=== PATIENT | male | born 1950 | race Caucasian/White ===

== ENCOUNTER 2020-03-13 02:40 | Outpatient (CLI) | payer MEDICARE, BC, SELFPAY ==
[2020-03-13 09:13] LABS: ALT 20 U/L (16-63); AST 14 U/L (15-37); Albumin 4.3 g/dL (3.4-5.0); Alkaline Phosphatase 111 U/L (46-116); Bilirubin, Total 0.7 mg/dL (0.2-1.0); Calculated LDL 90 mg/dL (<100); Cholesterol 143 mg/dL (<200); HDL Cholesterol 38 mg/dL (40-60); Total Protein 7.6 g/dL (6.4-8.2); Triglyceride 77 mg/dL (<150)
[2020-03-13 09:21] LABS: Bilirubin, Direct 0.16 mg/dL (0.00-0.20)
== END 2020-03-13 03:00 ==
PROVIDERS: PCP Emergency Medicine; Visit Provider Emergency Medicine
DX: H35.0 Background retinopathy and retinal vascular changes (principal); B17.10 Acute hepatitis C without hepatic coma
CPT/HCPCS: 36415; 80061; 80076

== ENCOUNTER 2020-12-11 18:15 | Outpatient (REF) | payer MEDICARE, BC, SELFPAY ==
[2020-12-11 21:12] LABS: BUN 14 mg/dL (7-18); CREATININE 0.8 mg/dL (0.70-1.30); Calcium 9.1 mg/dL (8.5-10.1); Chloride 105 mmol/L (98-107); Glucose 90 mg/dL (74-106); Sodium 142 mmol/L (136-145); Uric Acid 6.1 mg/dL (3.5-7.2)
[2020-12-12 17:26] LABS: PSA, Diagnostic 0.6 ng/mL (0.0-6.5)
== END 2020-12-11 18:16 | disposition home or self-care (01) ==
LOC: LBN 18:15
PROVIDERS: PCP Emergency Medicine; Visit Provider Emergency Medicine
DX: I10 Essential (primary) hypertension (principal); M10.9 Gout, unspecified; N40.0 Benign prostatic hyperplasia without lower urinary tract symptoms
CPT/HCPCS: 80048; 84153; 84550

== ENCOUNTER 2022-01-10 01:47 | Outpatient (CLI) | payer MEDICARE, BC, SELFPAY ==
[2022-01-10 08:14] LABS: ALT 20 U/L (16-63); AST 14 U/L (15-37); Alkaline Phosphatase 115 U/L (46-116); Anion Gap 7.2 mmol/L (3-11); BUN 12 mg/dL (7-18); Bilirubin, Total 0.5 mg/dL (0.2-1.0); CO2 31.8 mmol/L (21.0-32.0); CREATININE 0.9 mg/dL (0.70-1.30); Calcium 8.6 mg/dL (8.5-10.1); Calculated LDL 99 mg/dL (<100); Chloride 102 mmol/L (98-107); Cholesterol 167 mg/dL (<200); Glucose 109 mg/dL (74-106); HDL Cholesterol 43 mg/dL (40-60); Potassium 3.6 mmol/L (3.5-5.1); Sodium 141 mmol/L (136-145); Total Protein 7.9 g/dL (6.4-8.2); Triglyceride 125 mg/dL (<150)
== END 2022-01-10 01:48 | disposition home or self-care (01) ==
LOC: LBO 01:47
PROVIDERS: PCP Nurse Practitioner Family; Visit Provider Family Medicine
DX: I10 Essential (primary) hypertension (principal)
CPT/HCPCS: 36415; 80053; 80061

== ENCOUNTER 2022-02-25 03:55 | Outpatient (CLI) | payer MEDICARE, BC, SELFPAY ==
[2022-02-26 10:52] LABS: Lyme Ab w Rflx to Lyme Confirm Negative (Negative)
[2022-03-03 19:05] LABS: Anaplasma phagocytophilum Negative (Negative); B. miyamotoi PCR Negative (Negative); Babesia divergens/MO-1 Negative (Negative); Babesia duncani Negative (Negative); Babesia microti Negative (Negative); Ehrlichia chaffeensis Negative (Negative); Ehrlichia ewingii/canis Negative (Negative); Ehrlichia muris eauclairensis Negative (Negative)
== END 2022-02-25 03:56 | disposition home or self-care (01) ==
PROVIDERS: PCP Nurse Practitioner Family; Visit Provider Physician Assistant
DX: L29.8 Other pruritus; W57.XXXA Bitten or stung by nonvenomous insect and other nonvenomous arthropods, initial encounter; T14.8XXA Other injury of unspecified body region, initial encounter
CPT/HCPCS: 36415; 87798; 86618

== ENCOUNTER 2022-10-16 08:14 | Outpatient (CLI) | payer MEDICARE, BC, SELFPAY | END 2022-10-16 08:15 | disposition home or self-care (01) | PROVIDERS: PCP Nurse Practitioner Family; Visit Provider Nurse Practitioner Family | DX: R00.2 Palpitations (principal) | CPT/HCPCS: 93246 ==

== ENCOUNTER 2022-11-10 09:42 | Outpatient (CLI) | payer MEDICARE, BC, SELFPAY ==
--- NOTE | 2022-11-10 11:40 | W.CARDEVENT ---
Date of service: 11/10/22 Time of Service: 11:40 Cardiac Event Recorder Referring Provider:: Roldan Ulloa Indications:: Palpitations Cardiac Event Note: This is a 14-day event monitor ordered for palpitations. Rhythm throughout was sinus with an average heart rate of 71. Minimum was 50, maximum 113 There were rare atrial and ventricular ectopic beats There was no atrial fibrillation. Episodes labeled atrial fibrillation by the computer were in fact sinus rhythm with atrial premature beats There were several self-limited atrial runs. Longest of these was 26 beats in duration, otherwise all were less than 6 beats in length. Symptoms were reported. Some of these had no correlation to dysrhythmia, others to atrial premature beats
== END 2022-11-10 09:43 | disposition home or self-care (01) ==
PROVIDERS: PCP Nurse Practitioner Family; Visit Provider Internal Medicine Cardiovascular Disease
DX: R00.2 Palpitations (principal); I49.1 Atrial premature depolarization
CPT/HCPCS: 93248

== ENCOUNTER 2023-07-03 01:42 | Outpatient (CLI) | payer MEDICARE, BC, SELFPAY ==
[2023-07-03 15:58] LABS: Estimated GFR 79.97 (mL/min/1.73m2); Potassium 3.4 mmol/L (3.5-5.1)
[2023-07-03 17:56] LABS: Hemoglobin A1C 5.6 % (<5.7)
== END 2023-07-03 01:43 | disposition home or self-care (01) ==
LOC: LBO 01:43
PROVIDERS: PCP Nurse Practitioner Family; Visit Provider Nurse Practitioner Family
DX: R73.01 Impaired fasting glucose (principal); I10 Essential (primary) hypertension
CPT/HCPCS: 36415; 82565; 83036; 84132

== ENCOUNTER 2024-01-21 01:06 | Outpatient (CLI) | payer MEDICARE, BC, SELFPAY ==
[2024-01-21 15:38] LABS: HCT 49.1 % (40.0-50.0); HGB 17.2 g/dL (13.5-17.5); MCH 30.8 pg (27.0-33.0); MCV 88 fL (80-95); MPV 10.2 fL (8.0-11.0); Platelet Count 246 10^3/uL (130-400); RBC 5.58 10^6/uL (4.36-5.78); RDW 12.2 % (11.8-14.1); RDW-SD 40.1 fL; WBC 8.04 10^3/uL (4.4-10.8)
[2024-01-21 16:09] LABS: ALT 22 U/L (16-63); AST 18 U/L (15-37); Albumin 4.1 g/dL (3.4-5.0); Alkaline Phosphatase 105 U/L (46-116); Anion Gap 8.9 mmol/L (3-11); BUN 13 mg/dL (7-18); Bilirubin, Total 0.77 mg/dL (0.2-1.0); CO2 29.1 mmol/L (21.0-32.0); Calcium 9.2 mg/dL (8.5-10.1); Chloride 103 mmol/L (98-107); Estimated GFR 79.47 (mL/min/1.73m2); Glucose 94 mg/dL (74-106); Potassium 3.5 mmol/L (3.5-5.1); Sodium 141 mmol/L (136-145); Total Protein 7.9 g/dL (6.4-8.2)
== END 2024-01-21 01:07 | disposition home or self-care (01) ==
PROVIDERS: PCP Nurse Practitioner Family; Visit Provider Nurse Practitioner Family
DX: R55 Syncope and collapse (principal)
CPT/HCPCS: 36415; 80053; 85027

== ENCOUNTER 2024-07-12 02:02 | Outpatient (CLI) | payer MEDICARE, BC, SELFPAY ==
[2024-07-12 14:34] LABS: Anion Gap 6.4 mmol/L (3-11); BUN 10 mg/dL (7-18); CO2 30.6 mmol/L (21.0-32.0); CREATININE 1.1 mg/dL (0.70-1.30); Calcium 9.6 mg/dL (8.5-10.1); Calculated LDL 98 mg/dL (<100); Chloride 104 mmol/L (98-107); Cholesterol 164 mg/dL (<200); Estimated GFR 70.88 (mL/min/1.73m2); Glucose 106 mg/dL (74-106); HDL Cholesterol 48 mg/dL (40-60); Potassium 4.4 mmol/L (3.5-5.1); Sodium 141 mmol/L (136-145); Triglyceride 94 mg/dL (<150)
[2024-07-12 23:22] LABS: PSA, Screening 0.7 ng/mL (<=6.5)
== END 2024-07-12 02:03 | disposition home or self-care (01) ==
PROVIDERS: PCP Nurse Practitioner Family; Visit Provider Nurse Practitioner Family
DX: Z13.6 Encounter for screening for cardiovascular disorders (principal); Z12.5 Encounter for screening for malignant neoplasm of prostate; Z13.1 Encounter for screening for diabetes mellitus
CPT/HCPCS: 36415; 80048; 80061; 84153

== ENCOUNTER 2024-08-02 01:11 | Outpatient (CLI) | payer MEDICARE, BC, SELFPAY ==
--- NOTE | 2024-08-02 07:00 | DI.US_ITS ---
Exam(s) US LOWER EXTREMITY VENOUS LT EXAM: US LOWER EXTREMITY VENOUS LT CLINICAL HISTORY: LT leg swelling.? DVT,M79.89 TECHNIQUE: Grayscale, color, and doppler imaging of the deep venous system of the left lower extremi ty was performed. COMPARISON: No exams were available for comparison FINDINGS: There is no evidence of intraluminal thrombus and there is normal compression and augmentation demons trated within the common femoral vein, femoral vein, and popliteal vein. In the ipsilateral calf the interrogated veins also exhibit normal compression/ augmentation properti es. The ipsilateral saphenofemoral junction is patent. There is a fluid collection in the popliteal fossa measuring 2.1 x 1.1 x 2.3 cm, consistent with Bake r's cyst. IMPRESSION: 1. No evidence of DVT in the left lower extremity. 2. Donald cyst in the popliteal fossa noted measurements as above DATA REPOSITORY:
--- NOTE | 2024-08-02 09:23 | DI.RAD_ITS ---
Exam(s) XR KNEE LT 3V AP,LAT,KENNY EXAM: XR KNEE LT 3V AP,LAT,KENNY CLINICAL HISTORY: pain, swelling,M25.469. TECHNIQUE: 2D digital imaging was performed. COMPARISON: No exams were available for comparison FINDINGS: 3 views No evidence of acute fracture although a joint effusion is noted. There is chondrocalcinosis in both medial lateral compartments. Mild degenerative changes. No osseo us lesions. Bone density normal. In these 0 fight noted at the quadriceps insertion on the anterosu perior patella. IMPRESSION: No acute fractures. Joint effusion noted may signify internal derangement. Chondrocalcinosis is noted in both medial lateral compartments. DATA REPOSITORY: RADIATION DOSE DELIVERED:
== END 2024-08-02 01:31 ==
LOC: DI 01:12
PROVIDERS: PCP Nurse Practitioner Family; Visit Provider Physician Assistant
DX: M79.89 Other specified soft tissue disorders (principal)
CPT/HCPCS: 73562; 93971

== ENCOUNTER → 2024-08-17 11:11 | Outpatient (BNVA) | payer MEDICARE, BC, SELFPAY | PROVIDERS: PCP Nurse Practitioner Family; Referring Provider Nurse Practitioner Family; Visit Provider Podiatrist | DX: M79.671 Pain in right foot (principal); M25.571 Pain in right ankle and joints of right foot; E79.0 Hyperuricemia without signs of inflammatory arthritis and tophaceous disease; L03.031 Cellulitis of right toe | CPT/HCPCS: 99214 ==

== ENCOUNTER 2024-08-17 12:43 | Outpatient (CLI) | payer MEDICARE, BC, SELFPAY ==
--- NOTE | 2024-08-17 12:01 | DI.RAD_ITS ---
Exam(s) XR FOOT RT COMPLETE EXAM: XR FOOT RT COMPLETE CLINICAL HISTORY: hallux IPJ pain M79.671 Pain rt foot. TECHNIQUE: 2D digital imaging was performed. Three views. COMPARISON: CR LEFT FOOT COMPLETE from 04/06/2013 FINDINGS: BONES: No acute fracture is present. No bony destructive lesion is seen. JOINTS: No dislocation present. Mild hallux valgus. Mild degenerative changes at the 1st MTP joint. SOFT TISSUE: Vascular calcifications. IMPRESSION: Mild degenerative changes of the 1st MTP joint. Mild valgus. DATA REPOSITORY: RADIATION DOSE DELIVERED:
== END 2024-08-17 13:03 ==
LOC: DI 12:44
PROVIDERS: PCP Nurse Practitioner Family; Visit Provider Podiatrist
DX: M79.671 Pain in right foot (principal)
CPT/HCPCS: 73630

== ENCOUNTER 2024-08-17 12:44 | Outpatient (CLI) | payer MEDICARE, BC, SELFPAY ==
[2024-08-17 12:23] LABS: Abs Immature Grans 0.05 10^3/uL (0.0-0.06); Absolute Basophil Count 0.05 10^3/uL (0.0-0.2); Absolute Eosinophil Count 0.17 10^3/uL (0.0-0.7); Absolute Lymphocyte Count 2.09 10^3/uL (1.2-3.4); Absolute Monocyte Count 0.71 10^3/uL (0.1-0.8); Absolute Neutrophil Count 5.93 10^3/uL (1.2-6.7); Basophils % 0.6 %; Eosinophils % 1.9 %; HCT 49.4 % (40.0-50.0); HGB 16.7 g/dL (13.5-17.5); Immature Grans % 0.6 %; Lymphocytes % 23.2 %; MCHC 33.8 % (32.0-36.0); MCV 89 fL (80-95); MPV 9.8 fL (8.0-11.0); Monocytes % 7.9 %; Neutrophils % 65.8 %; Platelet Count 291 10^3/uL (130-400); RBC 5.56 10^6/uL (4.36-5.78); RDW 12.5 % (11.8-14.1); RDW-SD 41.1 fL
[2024-08-17 12:39] LABS: Uric Acid 6.5 mg/dL (3.5-7.2)
== END 2024-08-17 12:45 | disposition home or self-care (01) ==
LOC: LBO 12:45
PROVIDERS: PCP Nurse Practitioner Family; Visit Provider Podiatrist
DX: E79.0 Hyperuricemia without signs of inflammatory arthritis and tophaceous disease (principal); L03.90 Cellulitis, unspecified
CPT/HCPCS: 36415; 99214; 73630; 84550; 85025

== ENCOUNTER → 2024-08-19 07:52 | Outpatient (BNVA) | payer MEDICARE, BC, SELFPAY | PROVIDERS: PCP Nurse Practitioner Family; Referring Provider Nurse Practitioner Family | DX: M23.92 Unspecified internal derangement of left knee (principal) | CPT/HCPCS: 99203 ==

== ENCOUNTER → 2024-09-01 11:16 | Outpatient (BNVA) | payer MEDICARE, BC, SELFPAY | PROVIDERS: PCP Nurse Practitioner Family; Referring Provider Nurse Practitioner Family; Visit Provider Podiatrist | DX: M25.571 Pain in right ankle and joints of right foot; Z87.39 Personal history of other diseases of the musculoskeletal system and connective tissue | CPT/HCPCS: 99213 ==

== ENCOUNTER 2024-09-09 16:18 | Outpatient (CLI) | payer MEDICARE, BC, SELFPAY ==
--- NOTE | 2024-09-09 14:02 | DI.RAD_ITS ---
Exam(s) XR CHEST 2V PA LATERAL EXAM: XR CHEST 2V PA LATERAL CLINICAL HISTORY: CHRONIC COUGH, R05.9 TECHNIQUE: 2D digital imaging was performed. Two views. COMPARISON: No exams were available for comparison FINDINGS: HEART: Normal size. Aorta: Not dilated. PULMONARY VASCULATURE: Normal. MEDIASTINUM: Unremarkable. LUNGS: Clear. PLEURAL SPACE: No pleural effusion or pneumothorax. BONE:Unremarkable for age. SOFT TISSUES: Unremarkable. IMPRESSION: No acute abnormality. DATA REPOSITORY: RADIATION DOSE DELIVERED:
== END 2024-09-09 16:38 ==
LOC: DI 16:18
PROVIDERS: PCP Internal Medicine; Visit Provider Internal Medicine
DX: R05.9 Cough, unspecified (principal)
CPT/HCPCS: 71046

== ENCOUNTER 2024-09-12 01:26 | Outpatient (CLI) | payer MEDICARE, BC, SELFPAY ==
--- NOTE | 2024-09-12 06:30 | DI.MRI_ITS ---
Exam(s) MR LOWER JOINT LT WO EXAM: MR LOWER JOINT LT WO CLINICAL HISTORY: PAIN,internal derangement lt knee,m23.92 TECHNIQUE: Multiplanar multisequence MRI of the knee was performed. COMPARISON: CR XR KNEE LT 3V AP,LAT,KENNY from 08/02/2024 FINDINGS: EFFUSION: There is a prominent joint effusion and synovial thickening. There is also a Donald cyst in the popliteal fossa which measures 5 cm craniocaudal length by 1 cm AP by 1.2 cm wide. This may be ruptured as there is some fluid signal over the subjacent descending medial gastrocnemius muscle. Th ere is subcutaneous edema around the anterior aspect and knee. There is also a thin fluid collection anterior to the patella and patellar ligament, consistent with prepatellar bursitis. MARROW:There is an area of subarticular edema in the posterior aspect of the medial tibial plateau. There are no significant osseous lesions. PATELLOFEMORAL COMPARTMENT: Quadriceps tendon is intact. There is some signal abnormality in the inf erior patellar tendon but no high-grade tear is. There is no significant thinning of the retropatellar cartilage. No evidence of fissure nor signific ant chondral defect. No osteochondral defect at this level.There is no intraosseous signal to sugges t recent patellar dislocation. There are no patellar retinacular tears. CRUCIATE LIGAMENTS: There is signal abnormality throughout the mid-lower aspect of the anterior cruci ate ligament, consistent with probable partial tearing or significant degenerative changes in the str ucture. There is mild increased signal seen in the upper half of the posterior cruciate ligament but without a high-grade tear of the PCL. MEDIAL COMPARTMENT/MEDIAL MENISCUS: There is an oblique radial tear involving both the posterior and anterior horns of the medial meniscus. There also appears to be extension of the tear in oblique hor izontal fashion towards the meniscal root. There are no flipped meniscal fragments. There is some mild articular cartilage loss in the medial compartment. There is mild subarticular bill ne edema in the posterior aspect of the medial tibial plateau subjacent to the area of meniscal teari ng. There are no osteochondral defects. There are no marginal osteophytes in medial compartment. MEDIAL COLLATERAL LIGAMENT: Intact. LATERAL COMPARTMENT/LATERAL MENISCUS: There is myxoid degeneration signal evident both the anterior p osterior horns of the lateral meniscus. However, this does appear to contact the superior surface at the level the anterior meniscus and therefore consistent with an element of tearing at this level. There also appears to be subtle evidence of tearing at the level the root of the posterior horn of th e lateral meniscus. There are no flipped meniscal fragments.There is mild loss of articular cartilag e in the medial compartment. No prominent osteochondral defects. ILIOTIBIAL BAND: Intact LATERAL COLLATERAL LIGAMENT COMPLEX: There is signal abnormality in the popliteus muscle and at the m usculotendinous junction of the popliteus tendon but without a high-grade tear of the tendon.Mild inc reased signal seen in the upper aspect of the fibular collateral ligament but without full-thickness tear. Biceps femora is tendon is intact. IMPRESSION: 1. There are tears of both the medial and lateral menisci, as described above. Meniscal tears involv e both the anterior posterior horns of both menisci. There are no flipped meniscal fragments. There are mild degenerative changes in both medial lateral compartments. 2. Signal abnormality throughout the anterior cruciate ligament consistent with probable partial tear ing of this structure. 3. Some signal abnormality in the popliteus component of the lateral collateral ligament complex. Ho wever, there is no high-grade tearing of the LCL complex. 4. Prominent joint effusion with synovial thickening and there is a Donald cyst in the medial poplitea l fossa measuring 5 cm craniocaudal length. This contains some debris. 5. There is both subcutaneous edema around the anterior and lateral aspects of the knee and there is also prepatellar bursitis. DATA REPOSITORY:
== END 2024-09-12 01:46 ==
LOC: DI 01:27
PROVIDERS: PCP Internal Medicine; Visit Provider Student in an Organized Health Care Education/Training Program
DX: M23.322 Other meniscus derangements, posterior horn of medial meniscus, left knee (principal)
CPT/HCPCS: 73721

== ENCOUNTER → 2024-09-19 08:48 | Outpatient (BNVA) | payer MEDICARE, BC, SELFPAY | PROVIDERS: PCP Internal Medicine; Referring Provider Nurse Practitioner Family; Visit Provider Student in an Organized Health Care Education/Training Program | DX: M23.92 Unspecified internal derangement of left knee (principal); S83.242A Other tear of medial meniscus, current injury, left knee, initial encounter; S83.282A Other tear of lateral meniscus, current injury, left knee, initial encounter; X58.XXXA Exposure to other specified factors, initial encounter | CPT/HCPCS: 20610; 99214; J1010 ==

== ENCOUNTER → 2025-06-08 08:19 | Outpatient (BNVA) | payer MEDICARE, BC, SELFPAY | PROVIDERS: PCP Internal Medicine; Referring Provider Internal Medicine; Visit Provider Physician Assistant | DX: M23.92 Unspecified internal derangement of left knee (principal); S83.242A Other tear of medial meniscus, current injury, left knee, initial encounter; S83.282A Other tear of lateral meniscus, current injury, left knee, initial encounter; X58.XXXA Exposure to other specified factors, initial encounter | CPT/HCPCS: 20610; J1010 ==